=== PATIENT | female | born 1970 | race Caucasian/White ===

== ENCOUNTER 2022-09-22 12:23 | Emergency (ER) | payer OTHER ==
[~2022-09-22] VITALS: Ht 154.9 cm; Wt 73.5 kg
[2022-09-22] MEDS ORDERED: METRONIDAZOLE500 MG PO (15:54)
[2022-09-22] MEDS ORDERED: CIPROFLOXA500 MG/5 M PO (15:54)
[2022-09-22] MEDS ORDERED: KETO10TA2 PO (15:55)
== END 2022-09-22 18:04 | disposition home or self-care (01) ==
LOC: ER 12:23
DX: N21.1 Calculus in urethra (principal); K57.30 Diverticulosis of large intestine without perforation or abscess without bleeding